=== PATIENT | male | born 1995 | race Caucasian/White ===

== ENCOUNTER → 2018-12-18 | Emergency (ER) | payer SELFPAY ==
[~2018-12-18] MED LIST: Clindamycin CAP* 150 MG PO ONE; oxyCODONE/Acetamin 5/325 MG* TAB PO ONE
--- NOTE | 2018-12-18 18:14 | ED ---
Skin Complaint - HPI Summary HPI Summary: 23-year-old male presents with abscess on scrotum for the past couple days. 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 He states that he popped the area last night and has been draining. No fevers or chills. He states the area has redness that been spreading. Has been draining pus. Has no medical conditions. Has not been applying heat to the area. No chest or shortness breath. denies any other symptoms. Denies any change in stool. - History of Current Complaint Chief Complaint: EDRashSkinAbscess Time Seen by Provider: 12/18/18 16:40 Stated Complaint: GROIN PAIN Pain Intensity: 6 PMH/Surg Hx/FS Hx/Imm Hx Endocrine/Hematology History: Denies: Hx Anticoagulant Therapy Cardiovascular History: Denies: Hx Hypertension Infectious Disease History: No Infectious Disease History: Denies: Traveled Outside the [place] in Last 30 Days - Family History Known Family History: Positive: Non-Contributory - Social History Alcohol Use: Rare Substance Use Type: Reports: Marijuana Smoking Status (MU): Never Smoked Tobacco Review of Systems Negative: Fever Negative: Chest Pain Negative: Shortness Of Breath Positive: Rash All Other Systems Reviewed And Are Negative: Yes Physical Exam Triage Information Reviewed: Yes Vital Signs On Initial Exam: Initial Vitals Temp Pulse Resp BP Pulse Ox 98.3 F 83 16 131/69 98 12/18/18 10:42 12/18/18 10:42 12/18/18 10:42 12/18/18 10:42 12/18/18 10:42 Vital Signs Reviewed: Yes Appearance: Positive: Well-Appearing Skin: Positive: Warm, Dry, Other - 3cm by 5cm abscess under scrotum that has small opening that is draining Head/Face: Positive: Normal Head/Face Inspection Eyes: Positive: Normal, Conjunctiva Clear ENT: Positive: Pharynx normal Respiratory/Lung Sounds: Positive: Clear to Auscultation, Breath Sounds Present Cardiovascular: Positive: Normal, RRR Abdomen Description: Positive: Nontender, Soft, Other: - inguinal lymphadenopathy noted Bowel Sounds: Positive: Present Musculoskeletal: Positive: Normal Neurological: Positive: Normal Psychiatric: Positive: Normal Procedures - Incision and Drainage scrotum Site: scrotum Anesthesia: Local Instrument(s): Scalpel Packing: Gauze Diagnostics - Vital Signs Vital Signs Temp Pulse Resp BP Pulse Ox 12/18/18 14:20 98.6 F 77 20 119/70 99 12/18/18 12:31 98.2 F 78 20 118/64 98 12/18/18 10:42 98.3 F 83 16 131/69 98 - Laboratory Lab Statement: Any lab studies that have been ordered have been reviewed, and results considered in the medical decision making process. Course/Dx - Course Course Of Treatment: 23-year-old male presents with abscess on scrotum for the past couple days. 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 He states that he popped the area last night and has been draining. No fevers or chills. He states the area has redness that been spreading. Has been draining pus. Has no medical conditions. Has not been applying heat to the area. No chest or shortness breath. denies any other symptoms. Denies any change in stool. On exam has abscess under his scrotum. small opening noted with pus drainage. I&D the area got copious amounts of pus. Placed minimum packing. Told to follow-up with surgery or urology with any issues. We'll place on clindamycin. Patient understands agrees plan. - Differential Diagnoses - Skin Complaint Differential Diagnoses: Abscess, Cellulitis, Contact Dermatitis - Diagnoses Provider Diagnoses: Scrotal abscess Discharge - Sign-Out/Discharge Documenting (check all that apply): Patient Departure Patient Received Moderate/Deep Sedation with Procedure: No - Discharge Plan Condition: Good Disposition: HOME Prescriptions: Clindamycin Cap(NF) [Clindamycin Cap 300 mg Cap(NF)] 300 mg PO TID #29 cap Patient Education Materials: Abscess (ED) Referrals: Nirav Ortiz MD [Medical Doctor] - No Primary Care Phys,NOPCP [Primary Care Provider] - Cy Cuevas MD [Medical Doctor] - Additional Instructions: Take antibiotic three times a day for 10 days, first dose given in ED Apply warm compresses to area Take ibuprofen or Tylenol for pain every 6 hours Follow up in ED or urgent care in two days for wound check if packing still present to have removed Follow up with surgery or urology Return to ED if develop fever, area of redness spreads, or any new or worsening symptoms - Billing Disposition and Condition Condition: GOOD Disposition: Home
[2018-12-18 18:42] VITALS: BP 120/81
--- NOTE | 2018-12-19 09:38 | PN ---
Progress Note - Progress Note Date of Service: 12/18/18 Note: MRSA-positive staph aureus positive of wound culture preliminary Patient was placed on clindamycin prior to discharge This is likely sensitive to organism and nothing further at this time.
--- NOTE | 2018-12-21 07:25 | PN ---
Progress Note - Progress Note Date of Service: 12/18/18 Note: Urine cultures grew MRSA positive and staph aureus positive Patient was placed on clindamycin prior to discharge This is sensitive to organism and is appropriate treatment Nothing further at this time
== END | disposition home or self-care (01) ==
LOC: ED 10:31
DX: N49.2 Inflammatory disorders of scrotum (principal); B95.62 Methicillin resistant Staphylococcus aureus infection as the cause of diseases classified elsewhere; Z86.14 Personal history of Methicillin resistant Staphylococcus aureus infection
CPT/HCPCS: 10060; 87070; 87077; 87186; 87205; 87640; 87641; 99282; A9270-GY

== ENCOUNTER 2019-04-28 19:04 | Emergency (ER) | payer SELFPAY ==
[2019-04-28] MEDS ORDERED: Haloperidol INJ IV/IM* 5 MG/ML AMP IM ONE (19:10)
[2019-04-28] MEDS ORDERED: diPHENhydraMINE IV* 50 MG/ML 1 ml VIAL (BENADRYL) IM ONE (19:10)
[2019-04-28] MEDS ORDERED: LORazepam INJ* 2 MG/ML 1 ML VIAL IM ONE (19:10)
[2019-04-28] MEDS ORDERED: LORazepam INJ* 2 MG/ML 1 ML VIAL ONE (19:11)
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
[2019-04-28 19:59] LABS: ABS Eosinophils 0.1 10^3/ul (0-0.6); ABS Lymphocytes 1.6 10^3/ul (1.0-4.8); ABS Monocytes 0.6 10^3/ul (0-0.8); ABS Neutrophils 6.8 10^3/ul (1.5-7.7); Eosinophil % 0.7 %; Hematocrit 50 % (42-52); Hemoglobin 16.9 g/dL (14.0-18.0); Lymphocyte % 17.3 %; Mean Corpuscular HGB Conc 34 g/dL (31-36); Mean Corpuscular Hemoglobin 33 pg (27-31); Mean Corpuscular Volume 96 fL (80-94); Mean Platelet Volume 10.2 fL (7.4-10.4); Nucleated Red Blood Cells % 0.1; Platelet Count 202 10^3/uL (150-450); Red Blood Count 5.17 10^6 /uL (4.18-5.48); Red Cell Distribution Width 14 % (10-15); White Blood Count 9.1 10^3/uL (3.5-10.8)
[2019-04-28 20:26] LABS: Albumin 4.6 g/dL (3.2-5.2); Albumin/Globulin Ratio 1.4 (1-3); BUN/Creatinine Ratio 12.8 (8-20); Calcium 9.7 mg/dL (8.6-10.3); EGFR African American 99.7 (>60); EGFR Non-African American 82.4 (>60); Globulin 3.4 g/dL (2-4); Potassium 3.7 mmol/L (3.5-5.0); Total Bilirubin 0.7 mg/dL (0.2-1.0)
[2019-04-29] MEDS ORDERED: Lidocaine/Epineph/Tetraca GEL* 3 ML GEL IN SYR TOPICAL ONE (02:30)
[2019-04-29 04:08] LABS: Urine Appearance Cloudy; Urine Bacteria Absent (Absent); Urine Bilirubin Negative (Negative); Urine Blood Negative (Negative); Urine Color Yellow; Urine Glucose Negative (Negative); Urine Ketones Trace (Negative); Urine Nitrite Negative (Negative); Urine Protein 1+(30 mg/dL) (Negative); Urine Red Blood Cell 1+(3-5/hpf) (Absent); Urine Specific Gravity 1.027 (1.010-1.030); Urine Squamous Epithelial Cell Present (Absent); Urine Urobilinogen Negative (Negative); Urine White Blood Cell Trace(0-5/hpf) (Absent)
[2019-04-29 04:55] VITALS: BP 125/73
== END 2019-04-29 04:56 | disposition home or self-care (01) ==
LOC: ED 19:04
DX: S02.32XA Fracture of orbital floor, left side, initial encounter for closed fracture (principal); S01.81XA Laceration without foreign body of other part of head, initial encounter; F10.129 Alcohol abuse with intoxication, unspecified; X58.XXXA Exposure to other specified factors, initial encounter
CPT/HCPCS: 12013; 36415; 70450; 70486; 72125; 80053; 80320; 81003; 81015; 85025; 87086; 99285; A9270-GY; G0480; J2060